=== PATIENT | male | born 1955 | race Caucasian/White ===

== ENCOUNTER 2022-04-15 07:47 | Day surgery (SDC) | payer SELFPAY ==
[2022-04-14 08:52] VITALS: BMI 36.3
[2022-04-15] MEDS ORDERED: Heparin 25,000 units/D5W 500 ML ONE (09:10)
[2022-04-15] MEDS ORDERED: Heparin 10,000 UNITS/ 10 ML VIAL ONE (09:10)
[2022-04-15] MEDS ORDERED: Protamine Sulfate 50 MG/5 ML VIAL ONE (09:10)
[2022-04-15] MEDS ORDERED: Midazolam HCl 2 mg/2 ml Vial ONE (09:24)
[2022-04-15] MEDS ORDERED: FENTANYL 50 MCG/ML 1 ML VIAL ONE (09:25)
[2022-04-15] MEDS ORDERED: Rocuronium Bromide 10 MG/ML (10ML VIAL) ONE (09:26)
[2022-04-15] MEDS ORDERED: Dexamethasone 20 MG/5 ML VIAL ONE (09:26)
[2022-04-15] MEDS ORDERED: ePHEDrine 50 MG/ML VIAL ONE (09:26)
[2022-04-15] MEDS ORDERED: Lidocaine 1% PF 5 ML VIAL ONE (09:26)
[2022-04-15] MEDS ORDERED: Esmolol 100 MG/10 ML VIAL ONE (09:26)
[2022-04-15] MEDS ORDERED: PHENYLEPHRINE-NS 100 MCG/ML 10 ML SYRINGE ONE (09:26)
[2022-04-15] MEDS ORDERED: Ondansetron PF 4 MG/2 ML Vial ONE (09:26)
[2022-04-15] MEDS ORDERED: PROPOFOL 200 MG/20 ML VIAL ONE (09:26)
[2022-04-15] MEDS ORDERED: SUGAMMADEX SODIUM 200 MG/2 ML VIAL ONE (11:55)
[2022-04-15] MEDS ORDERED: Fentanyl 100 MCG/2 ML VIAL ONE (13:01)
== END 2022-04-15 15:20 | disposition home or self-care (01) ==
LOC: SDC 07:47
PROVIDERS: ATTEND Internal Medicine Cardiovascular Disease
PROC: 02583ZZ Destruction of Conduction Mechanism, Percutaneous Approach (ICD-10-PCS; principal; 2022-04-15)
PROC: B246ZZ4 Ultrasonography of Right and Left Heart, Transesophageal (ICD-10-PCS; principal; 2022-04-15)
PROC: 4A0234Z Measurement of Cardiac Electrical Activity, Percutaneous Approach (ICD-10-PCS; principal; 2022-04-15)
PROC: 4A023FZ Measurement of Cardiac Rhythm, Percutaneous Approach (ICD-10-PCS; principal; 2022-04-15)
PROC: 02K83ZZ Map Conduction Mechanism, Percutaneous Approach (ICD-10-PCS; principal; 2022-04-15)
DX: I48.0 Paroxysmal atrial fibrillation (principal); I48.3 Typical atrial flutter; I49.5 Sick sinus syndrome; I10 Essential (primary) hypertension; I47.1 Supraventricular tachycardia; G47.30 Sleep apnea, unspecified; E66.9 Obesity, unspecified; Z68.36 Body mass index [BMI] 36.0-36.9, adult; Z86.16 Personal history of COVID-19; Z79.01 Long term (current) use of anticoagulants; Z79.899 Other long term (current) drug therapy
CPT/HCPCS: 85347; 93005; 93312; 93655; 93656; C1731; C1732; C1759; C1760; C1769; C1894; C2630; J1100; J1644; J2250; J2405; J2704; J2720; J3010; J3490